=== PATIENT | male | born 1955 | race Caucasian/White ===

== ENCOUNTER 2018-12-11 23:47 | Emergency (ER) | payer OTHER ==
[~2018-12-11] VITALS: Ht 172.7 cm; Wt 67.1 kg
--- NOTE | ~2018-12-11 | EKG ---
[address] [address] ELECTROCARDIOGRAM REPORT Name: ABDON EDUARDO Room #: DEP AMANDA Coelho#: [id number] ������������������ Admission: 12/11/18 ������������������ Attend Phys: Discharge: 12/12/18 ������������������ Date of : 59 Report #: [id number] ����������������������������������������������������������������� [id number] THIS REPORT FOR: //name// [facility] ED Test Date: 2018-12-12 Test Time: 00:27:08 Pat Name: ABDON EDUARDO Department: Room: Gender: [employer]: kay : 1955 Requested By: Payton Patton Order Number: [id number] MD: Measurements Intervals [place] Rate: 96 P: 55 NE: 152 QRS: 27 QRSD: 83 T: 39 QT: 371 QTc: 469 Interpretive Statements Sinus tachycardia Atrial premature complexes in couplets No previous ECG available for comparison Electronically Signed On 12-12-2018 7:33:38 CDT by Abisai Remy [email or web address] ��������������������������������������������� ���������������������������������������� By: ��������������������������������������������� 0946 0027 Abisai Remy MD /EPI
[2018-12-12 00:27] LABS: HEMATOCRIT 42.7 % (42.0-52.0); HEMOGLOBIN 14.4 gm/dL (14.0-18.0); MCH 31.8 pg (26.0-34.0); MCHC 33.7 g/dL (28.0-37.0); MCV 94.6 fL (80.0-100.0); PLATELET COUNT 771 thou/uL (150-400); RBC 4.51 mil/uL (4.50-6.00); RDW 15.9 % (10.5-14.5); WBC 14.5 thou/uL (4.0-11.0)
[2018-12-12 00:35] LABS: ANION GAP 19 mmol/L (7-16); BUN 8 mg/dL (7-18); CALCIUM 9.7 mg/dL (8.5-10.1); CHLORIDE 92 mmol/L (98-107); CO2 21 mmol/L (21-32); CREATININE 0.9 mg/dL (0.7-1.3); GLUCOSE 91 mg/dL (74-106); POTASSIUM 3.8 mmol/L (3.5-5.1); SODIUM 132 mmol/L (136-145)
[2018-12-12 00:45] LABS: ALBUMIN 4.1 g/dL (3.4-5.0); SGOT 48 U/L (15-37); SGPT 40 U/L (30-65); TOTAL BILIRUBIN 1.8 mg/dL (<0.1-1.0); TOTAL PROTEIN 7.8 g/dL (6.4-8.2); TROPONIN-I <0.06 ng/mL (<0.06)
[2018-12-12 01:15] LABS: URINE BILIRUBIN NEGATIVE (Negative); URINE BLOOD NEGATIVE (Negative); URINE CLARITY CLEAR; URINE COLOR YELLOW; URINE GLUCOSE-RANDOM* NEGATIVE (Negative); URINE KETONES 2+ (Negative); URINE LEUKOCYTES-REFLEX NEGATIVE (Negative); URINE NITRITE-REFLEX NEGATIVE (Negative); URINE PROTEIN (DIPSTICK) NEGATIVE (Negative); URINE SPECIFIC GRAVITY <= 1.005 (1.005-1.035); URINE UROBILINOGEN 0.2 E.U./dl (0.2-1.0)
[2018-12-12 01:23] LABS: AMP/METHAMP Negative (Negative); BARBITURATES Negative (Negative); BENZODIAZEPINES Negative (Negative); COCAINE Negative (Negative); METHADONE Negative (Negative); OPIATES Negative (Negative); PCP Negative (Negative)
[2018-12-12 01:33] LABS: ABSOLUTE NEUTROPHILS 13.5 thou/uL (1.4-8.2)
[2018-12-12 01:34] LABS: PLATELET ESTIMATE MARKEDLY INCREASED; POLYCHROMASIA 1+
[2018-12-12 01:35] LABS: LARGE PLATELETS FEW
[2018-12-12] MEDS ORDERED: CIPROFLOXACIN500 M1 PO (02:37)
[2018-12-12] MEDS ORDERED: ZOFRAN4 MG PO (02:37)
[2018-12-12] MEDS ORDERED: FLAGYL500 M1 PO (02:37)
[2018-12-12 03:07] VITALS: BP 161/89
== END 2018-12-12 03:08 | disposition home or self-care (01) ==
LOC: ER 23:47
PROVIDERS: Student in an Organized Health Care Education/Training Program
DX: K57.32 Diverticulitis of large intestine without perforation or abscess without bleeding (principal); I10 Essential (primary) hypertension; R19.7 Diarrhea, unspecified